=== PATIENT | female | born 1995 | race Caucasian/White ===

== ENCOUNTER → 2018-05-17 | Emergency (ER) | payer OTHER ==
[~2018-05-17] VITALS: Ht 170.2 cm; Wt 82.6 kg
[~2018-05-17] MED LIST: KEFLEX500 MG PO; KETO10TA2 PO; ULTRAM50 MG PO
== END | disposition home or self-care (01) ==
LOC: ER 15:22
DX: B34.9 Viral infection, unspecified (principal); N39.0 Urinary tract infection, site not specified